=== PATIENT | female | born 1960 | race African-American/Black ===

== ENCOUNTER 2022-02-16 09:33 | Emergency (ER) | payer SELFPAY ==
[~2022-02-16] VITALS: Ht 172.7 cm; Wt 72.0 kg
[2022-02-16] MEDS ORDERED: MORPHINE SULFATE 4 MG/ML CPJ (NOT FOR IM USE) IV STA (09:56)
[2022-02-16] MEDS ORDERED: ONDANSETRON HCL 4MG/2ML INJ IV STA (09:56)
[2022-02-16] MEDS ORDERED: MORPHINE SULFATE 4 MG/ML CPJ (NOT FOR IM USE) IV ONE (10:00)
[2022-02-16] MEDS ORDERED: SODIUM CHLORIDE 0.9% 1,000 ML IV ONE (10:00)
[2022-02-16 10:16] LABS: BASOPHILS % 0.5 % (0.0-2.0); EOSINOPHILS % 0.8 % (0.0-5.0); HEMATOCRIT. 37.3 % (36.0-48.0); HEMOGLOBIN. 12.8 g/dL (12.0-16.0); LYMPHOCYTES % 30.3 % (20.0-50.0); MEAN CORPUSCULAR VOLUME 78.3 fL (81.0-99.0); MEAN PLATELET VOLUME 9.4 fl (7.4-10.4); MONOCYTES % 4.2 % (2.0-8.0); NEUTROPHILS % 64.2 % (40.0-76.0); PLATELET 273 x1000/uL (130-400); RED BLOOD CELL COUNT 4.76 mill/uL (4.2-5.4)
[2022-02-16 10:23] LABS: CHLORIDE 109 mEq/L (98-107)
[2022-02-16 11:10] LABS: CLARITY URINE CLOUDY (CLEAR); COLOR URINE DARK YELLOW (YELLOW); KETONES URINE TRACE (NEGATIVE); LEUKOCYTE ESTERASE URINE NEGATIVE (NEGATIVE); NITRITE URINE NEGATIVE (NEGATIVE); OCCULT BLOOD URINE 3+ (NEGATIVE); PROTEIN URINE TRACE (NEGATIVE); SPECIFIC GRAVITY URINE 1.025 (1.005-1.030)
[2022-02-16] MEDS ORDERED: IOHEXOL-300 100 ML BOTTLE ONE (12:10)
[2022-02-16] MEDS ORDERED: KETOROLAC 15MG/ML VIAL IV NR (12:30)
[2022-02-16] MEDS ORDERED: ONDA4TAB11 PO (13:07)
[2022-02-16] MEDS ORDERED: HYDR-4001 MT (13:07)
[2022-02-16] MEDS ORDERED: KETO10TA2 MT (13:07)
[2022-02-16] MEDS ORDERED: KETOROLAC 15MG/ML VIAL IV SCH (14:15)
[2022-02-16] MEDS ORDERED: MORPHINE SULFATE 4 MG/ML CPJ (NOT FOR IM USE) IV SCH (14:15)
[2022-02-16 14:17] VITALS: BP 118/59
== END 2022-02-16 16:54 | disposition home or self-care (01) ==
LOC: ER 09:33
DX: N13.2 Hydronephrosis with renal and ureteral calculous obstruction (principal); R11.2 Nausea with vomiting, unspecified; Z90.710 Acquired absence of both cervix and uterus; Z85.41 Personal history of malignant neoplasm of cervix uteri; Z85.3 Personal history of malignant neoplasm of breast; Z88.0 Allergy status to penicillin
CPT/HCPCS: 36415; 74177; 80053; 81003; 83690; 85025; 93005; 96361; 96374; 96375; 99285; J1885; J2270; J2405; J7030; Q9967; Z7610